=== PATIENT | female | born 1985 | race Two or more races ===

== ENCOUNTER 2023-06-02 13:30 | Inpatient (IN) | payer OTHER ==
[~2023-06-02] VITALS: Ht 170.2 cm; Wt 81.6 kg
[2023-06-24] MEDS ORDERED: PRENATAL TABLE1 EAC4 PO (08:59)
[2023-06-24 09:00] LABS: HEMATOCRIT 35.6 % (36.0-45.00); HEMOGLOBIN 11.9 g/dL (12.0-15.00); MEAN CELL VOLUME 92.1 fL (80.00-100.00); MEAN CORPUSCULAR HEMOGLOBIN 30.7 pg (27.00-32.0); MEAN CORPUSCULAR HGB CONC 33.4 g/dl (32.0-36.0); PLATELET COUNT 163 K/uL (150-450); RED BLOOD COUNT 3.86 M/uL (4.00-6.00); RED CELL DISTRIBUTION WIDTH 13.3 % (11.5-14.5)
[2023-06-24 09:39] LABS: ALBUMIN 2.7 gm/dL (3.4-5.0); BILIRUBIN TOTAL 0.35 mg/dL (0.3-1.2); CALCIUM 8.6 mg/dL (8.5-10.1); CREATININE SERUM 0.61 mg/dL (0.55-1.02); GFR 111.61; POTASSIUM 4.17 mEq/L (3.5-5.1); TOTAL PROTEIN 5.7 gm/dL (6.4-8.2)
[2023-06-24 10:03] LABS: INR < 0.93; PARTIAL THROMBOPLASTIN TIME 24.8 SECONDS (22.0-34.0); PROTHROMBIN TIME 9.6 SECONDS (9.0-11.5)
[2023-06-24 19:10] LABS: ABG PH 7.343 (7.35-7.45); ABG pCO2 42.8 mmHg (35-45); BASE EXCESS -2.9 mmol/l; BICARBONATE 22.7 mmol/l (23-25); SaO2 63.3 %
[2023-06-24 20:03] LABS: ABG PO2 35.4 mmHg (80-100); o2 21 %
== END 2023-06-26 12:02 | disposition home or self-care (01) | DRG 807 ==
LOC: LDR 06-22 13:30 → OB/GYN 06-24 17:08
PROVIDERS: ADMIT Obstetrics & Gynecology Maternal & Fetal Medicine; ATTEND Obstetrics & Gynecology Maternal & Fetal Medicine
PROC: 10E0XZZ Delivery of Products of Conception, External Approach (ICD-10-PCS; principal; 2023-06-24)
PROC: 0KQM0ZZ Repair Perineum Muscle, Open Approach (ICD-10-PCS; 2023-06-24)
PROC: 0W8NXZZ Division of Female Perineum, External Approach (ICD-10-PCS; 2023-06-24)
PROC: 4A1HXCZ Monitoring of Products of Conception, Cardiac Rate, External Approach (ICD-10-PCS; 2023-06-24)
DX: O70.1 Second degree perineal laceration during delivery (principal); Z37.0 Single live birth; Z3A.40 40 weeks gestation of pregnancy; Z20.822 Contact with and (suspected) exposure to COVID-19

== ENCOUNTER 2024-08-23 15:00 | Inpatient (IN) | payer OTHER ==
[~2024-08-23] VITALS: Ht 170.2 cm; Wt 85.7 kg
[~2024-08-23 15:00] MED LIST: PRENATAL TABLE1 EAC4 PO
[2024-08-31] VITALS (8 sets, daily range): BP systolic 98–123; BP diastolic 64–81
[2024-08-31 08:47] LABS: HEMATOCRIT 37.6 % (36.0-45.00); HEMOGLOBIN 12.9 g/dL (12.0-15.00); MEAN CELL VOLUME 90.9 fL (80.00-100.00); MEAN CORPUSCULAR HEMOGLOBIN 31.2 pg (27.00-32.0); MEAN CORPUSCULAR HGB CONC 34.3 g/dl (32.0-36.0); PLATELET COUNT 175 K/uL (150-450); RED BLOOD COUNT 4.13 M/uL (4.00-6.00); RED CELL DISTRIBUTION WIDTH 13.4 % (11.5-14.5)
[2024-08-31 09:08] LABS: INR < 0.93; PARTIAL THROMBOPLASTIN TIME 24.5 SECONDS (22.0-34.0); PROTHROMBIN TIME 9.9 SECONDS (9.0-11.5)
[2024-08-31] MEDS ORDERED: OXYTOCIN 500 ML IV SCH (09:30)
[2024-08-31 09:35] LABS: ALBUMIN 2.9 gm/dL (3.4-5.0); BILIRUBIN TOTAL 0.47 mg/dL (0.3-1.2); CALCIUM 9.1 mg/dL (8.5-10.1); CREATININE SERUM 0.73 mg/dL (0.55-1.02); GFR 90.21; GLOBULINA 3.4 G/DL (2.4-3.5); POTASSIUM 4.86 mEq/L (3.5-5.1); TOTAL PROTEIN 6.3 gm/dL (6.4-8.2)
[2024-08-31] MEDS ORDERED: CHLORHEXIDINE GLUCONATE 120 ML BOTTLE TP SCH (21:30)
[2024-08-31] MEDS ORDERED: OxyCODONE HCL/APAP UD (PERCOCET) PO PRN (21:30)
[2024-08-31] MEDS ORDERED: OXYTOCIN 1,000 ML IV SCH (21:30)
[2024-08-31] MEDS ORDERED: LIDOCAINE HCL 1% 10ML VIAL IJ ONE ×2 (22:00)
[2024-09-01] VITALS: BP 124/69
[2024-09-01] MEDS ORDERED: KETOROLAC TROMETHAMINE 10 MG TABLET PO SCH
[2024-09-01 08:44] VITALS: BP 102/67
[2024-09-01 15:45] VITALS: BP 105/71
[2024-09-02 00:12] VITALS: BP 111/67
[2024-09-02 10:27] VITALS: BP 109/70
== END 2024-09-02 12:55 | disposition home or self-care (01) | DRG 807 ==
LOC: LDR 08-31 07:28 → OB/GYN 08-31 21:39 → LDR 09-02 15:00
PROVIDERS: ADMIT Obstetrics & Gynecology Maternal & Fetal Medicine; ATTEND Obstetrics & Gynecology Maternal & Fetal Medicine
PROC: 10E0XZZ Delivery of Products of Conception, External Approach (ICD-10-PCS; principal; 2024-08-31)
PROC: 0KQM0ZZ Repair Perineum Muscle, Open Approach (ICD-10-PCS; 2024-08-31)
PROC: 0W8NXZZ Division of Female Perineum, External Approach (ICD-10-PCS; 2024-08-31)
PROC: 3E033VJ Introduction of Other Hormone into Peripheral Vein, Percutaneous Approach (ICD-10-PCS; 2024-08-31)
PROC: 4A1HXCZ Monitoring of Products of Conception, Cardiac Rate, External Approach (ICD-10-PCS; 2024-08-31)
DX: O70.1 Second degree perineal laceration during delivery (principal); Z37.0 Single live birth; Z3A.37 37 weeks gestation of pregnancy; Z20.822 Contact with and (suspected) exposure to COVID-19